=== PATIENT | female | born 1985 | race Caucasian/White ===

== ENCOUNTER 2018-08-24 07:00 | Emergency (ER) | payer MEDICAID ==
[~2018-08-24] VITALS: Ht 152.4 cm; Wt 75.7 kg
[2018-08-24 07:08] VITALS: BP 159/88; Ht 152.4 cm; Wt 75.7 kg
== END 2018-08-24 08:02 | disposition home or self-care (01) ==
LOC: ED 07:00
DX: S00.11XD Contusion of right eyelid and periocular area, subsequent encounter (principal); S00.211D Abrasion of right eyelid and periocular area, subsequent encounter; W22.03XD Walked into furniture, subsequent encounter
CPT/HCPCS: 90715

== ENCOUNTER 2018-10-05 18:03 | Emergency (ER) | payer MEDICAID ==
[~2018-10-05] VITALS: Ht 152.4 cm; Wt 73.0 kg
[2018-10-05 18:34] VITALS: Ht 152.4 cm; Wt 73.0 kg
[2018-10-05 20:54] LABS: BASOPHIL % 0.4 % (0-2); PLATELET COUNT 274 x10^3mcL (130-400)
[2018-10-05 21:02] LABS: RED CELL DISTRIBUTION WIDTH 19.3 % (11.5-14.5)
[2018-10-05 21:09] LABS: CALCIUM 9.3 mg/dL (8.5-10.1); CHLORIDE SERUM 93 mmol/L (98-107); CREATININE SERUM 0.8 mg/dL (0.6-1.0); GFR1 > 60 mL/min; GLUCOSE SERUM 102 mg/dL (74-106); POTASSIUM SERUM 3.7 mmol/L (3.5-5.1); SODIUM SERUM 133 mmol/L (136-145)
[2018-10-05 21:13] LABS: ALBUMIN 4.2 g/dL (3.4-5.0); ALKALINE PHOSPHATASE 117 U/L (46-116); ALT/SGPT 114 U/L (14-59); AST/SGOT 272 U/L (15-37); BILIRUBIN TOTAL 2.2 mg/dL (0.20-1.00)
[2018-10-05 21:14] LABS: TOTAL PROTEIN, SERUM 9.7 g/dL (6.4-8.2)
[2018-10-05 21:19] LABS: FREE T4 1.31 ng/dL (0.76-1.46); FREE THYROXINE INDEX 4.3 ug/dL (1.4-4.5); T4(THYROXINE) 11.9 ug/dL (4.7-13.3)
[2018-10-05 21:25] LABS: T3 TOTAL 1.28 ng/mL
[2018-10-05 22:25] VITALS: BP 132/76
== END 2018-10-05 22:25 | disposition home or self-care (01) ==
LOC: ED 18:03
PROVIDERS: Emergency Medicine
DX: F10.20 Alcohol dependence, uncomplicated (principal); R74.8 Abnormal levels of other serum enzymes; Y90.9 Presence of alcohol in blood, level not specified
CPT/HCPCS: 36415; 84439